=== PATIENT | female | born 1940 | race Caucasian/White ===

== ENCOUNTER 2021-06-07 12:33 | Outpatient (CLI) | payer MEDICARE, OTHER, SELFPAY ==
--- NOTE | 2021-06-07 12:39 | ECHOD_ITS ---
Reason For Study: Murmur Procedure This was a 2D Doppler, Color Flow transthoracic echocardiogram. The exam was of adequate technical quality. Exam performed in department. Left Ventricle Normal LV size. Left ventricular systolic function is normal. The estimated ejection fraction is 65 %. No regional wall motion abnormalities noted. Right Ventricle Normal RV size. Normal systolic function. Atria The left atrium is mildly enlarged. Normal right atrium. No doppler evidence for ASD. Mitral Valve There is moderate mitral annular calcification. Extension of the mitral annular calcification on the base of the posterior mitral valve leaflet. Mild-Moderate (1-2+) mitral valve insufficiency. Tricuspid Valve Normal tricuspid valve. Mild to moderate (1-2+) tricuspid valve insufficiency. Right ventricular systolic pressure estimated to be 48 mmHg. Aortic Valve Trisinus/trileaflet aortic valve. Mild focal aortic valve calcification. Mild aortic stenosis. Trivial aortic valve insufficiency. Pulmonic Valve The pulmonic valve is not well visualized. Mild (1+) pulmonic valve insufficiency. Great Vessels Normal sized aortic root. Pericardium/Pleural No pericardial effusion. MMode/2D Measurements & Calculations LVIDd: 4.5 cm IVSd: 1.2 cm LVOT diam: 2.0 cm LVIDs: 2.3 cm LVPWd: 0.89 cm LVOT area: 3.0 cm2 RVDd: 3.2 cm FS: 49.8 % Ao root diam: 2.9 cm LAV(MOD-bp): 68.7 ml LVAd ap4: 23.3 cm2 LAV(MOD-bp) Indexed: 37.3 ml/m2 LVLd ap4: 7.1 cm LAV(MOD-sp2): 66.7 ml EDV(MOD-sp4): 60.8 ml LAV(MOD-sp4): 68.0 ml EDV(sp4-el): 64.8 ml LVAs ap4: 12.0 cm2 LVLs ap4: 6.0 cm ESV(MOD-sp4): 20.1 ml ESV(sp4-el): 20.3 ml EF(MOD-sp4): 67.0 % EF(sp4-el): 68.7 % SV(MOD-sp4): 40.7 ml SV(sp4-el): 44.5 ml LA A4 area: 21.9 cm2 LA dimension(2D): 4.6 cm RA A4 area: 10.3 cm2 Doppler Measurements & Calculations MV E max todd: 129.5 cm/sec Lat Peak E' Todd: 8.3 cm/sec Med Peak E' Todd: 8.0 cm/sec MV A max todd: 118.2 cm/sec E/E' lat: 15.7 E/E' med: 16.2 MV E/A: 1.1 Ao V2 max: 218.2 cm/sec AI max todd: 422.1 cm/sec LV V1 max: 133.7 cm/sec Ao max P.1 mmHg AI max P.3 mmHg LV V1 max P.1 mmHg Ao V2 mean: 152.3 cm/sec LV V1 mean P.0 mmHg Ao mean P.3 mmHg AI dec slope: 183.2 cm/sec2 LV V1 mean: 94.6 cm/sec Ao V2 VTI: 54.2 cm AI P1/2t: 675.0 msec LV V1 VTI: 34.5 cm SAL(I,D): 1.9 cm2 SAL(V,D): 1.9 cm2 SV(LVOT): 104.6 ml PA V2 max: 117.5 cm/sec TR max todd: 330.2 cm/sec TR max P.4 mmHg ECHO/Echo Complete Interpretation Summary Left ventricular systolic function is normal. The estimated ejection fraction is 65 %. The left atrium is mildly enlarged. There is moderate mitral annular calcification. Extension of the mitral annular calcification on the base of the posterior mitr al valve leaflet. Mild-Moderate (1-2+) mitral valve insufficiency. Mild to moderate (1-2+) tricuspid valve insufficiency. Mild focal aortic valve calcification. Mild aortic stenosis. Trivial aortic valve insufficiency. Mild (1+) pulmonic valve insufficiency. Right ventricular systolic pressure estimated to be 48 mmHg. Transmitral diastolic flow velocities suggest diastolic dysfunction (pseudonorm al pattern). Ordering Physician: Olu Davis Referring Physician: MD Fermín Varun Performed By: Nichol Medina, NATALIE
== END 2021-06-07 23:59 | disposition short-term general hospital (02) ==
LOC: CVS 12:38
PROVIDERS: PCP Family Medicine; Referring Provider Internal Medicine Cardiovascular Disease; Visit Provider Internal Medicine Cardiovascular Disease
DX: I25.10 Atherosclerotic heart disease of native coronary artery without angina pectoris (principal); I10 Essential (primary) hypertension; E78.2 Mixed hyperlipidemia; R01.1 Cardiac murmur, unspecified; Z95.1 Presence of aortocoronary bypass graft
CPT/HCPCS: 93306

== ENCOUNTER → 2024-08-19 | Outpatient (CLI) | payer MEDICARE, OTHER, SELFPAY ==
--- NOTE | 2024-08-19 14:52 | NEURO ---
NCS and/or EMG Patient Report Ordering Doctor: Melba Rubio DATE OF SERVICE: 08/19/24 Sally presents for electrodiagnostic testing of the upper limbs. She reports numbness and tingling in both hands. Electrodiagnostic findings: Median motor nerve demonstrates prolonged latency bilaterally with reduced amplitudes and reduced conduction velocities. Ulnar motor response is within normal limits bilaterally. Normal median and ulnar F?waves. Prolonged median sensory latency at the wrist bilaterally. Needle EMG testing was performed upper limbs. All muscles tested showed no evidence of denervation with normal motor unit action potentials. Electrodiagnostic impression: This is an abnormal study upper limbs. 1. Electrodiagnostic findings suggestive of bilateral median mononeuropathy. This consistent with a moderate to advanced bilateral carpal tunnel syndrome. Multi Select Codes Neurology Neurology Interp Codes: 66830-73 Musc test done w/n test comp (interp) (2) and 45177-95 Nrv cndj test 9-10 studies (interp)
== END | disposition home or self-care (01) ==
LOC: PSN 13:35
PROVIDERS: PCP Family Medicine; Referring Provider Physician Assistant Surgical; Visit Provider Physician Assistant Surgical
DX: G56.03 Carpal tunnel syndrome, bilateral upper limbs (principal)
CPT/HCPCS: 95886; 95911

== ENCOUNTER → 2024-11-18 | Outpatient (CLI) | payer MEDICARE, OTHER, SELFPAY ==
[2024-11-18 13:49] LABS: Cholesterol 236 mg/dL (<=200); Low Density Lipoprotein Calc. 148 mg/dL; Triglycerides 156 mg/dL; Very Low Density Lipoprotein 31 mg/dL (5-40); cholesterol:hdl ratio screen 4.16
== END | disposition home or self-care (01) ==
LOC: LAB 11:17
PROVIDERS: PCP Family Medicine; Referring Provider Internal Medicine Cardiovascular Disease; Visit Provider Internal Medicine Cardiovascular Disease
DX: I25.10 Atherosclerotic heart disease of native coronary artery without angina pectoris (principal)
CPT/HCPCS: 36415; 80061

== ENCOUNTER 2025-03-18 09:00 | Emergency (ER) | payer MEDICARE, OTHER, SELFPAY ==
[2025-03-18 09:00] VITALS: BP 201/62; PULSE 55; RESP 16; TEMP 36.8; O2SAT 95
--- NOTE | 2025-03-18 09:18 | CT_ITS ---
PROCEDURE: CT/Brain/Head without Contrast
--- NOTE | 2025-03-18 09:18 | CT_ITS ---
PROCEDURE: CT/Spine Cervical without Contras
--- NOTE | 2025-03-18 09:20 | ED.VIS.FALL ---
HPI HPI - Fall History of Present Illness Chief Complaint: Fall Narrative Narrative: Patient is a 85-year-old female presenting to emergency department after mechanical fall. Patient brought in by daughter. Patient states that she was feeding her cats outside when she slipped on a rug coming back in causing her to fall backwards and striking the left back of her head. She denies any use of oral anticoagulation. Denies any LOC. Denies any neck or back pain. She is endorsing left-sided head pain, left hip pain and left wrist pain. States she was able to get up by herself afterwards and ambulate. [facility] Medical History Nonrheumatic aortic (valve) stenosis Non-rheumatic tricuspid valve insufficiency Non-rheumatic aortic regurgitation Cardiac murmur GERD (gastroesophageal reflux disease) Hypothyroidism Mixed hyperlipidemia Diverticulosis Old myocardial infarction Essential hypertension Atherosclerotic heart disease of [place] coronary artery without angina pectoris Home Medications ?Medication ?Instructions ?Recorded ?Last Taken ?Type coenzyme Q10 100 mg tablet 200 mg PO DAILY 01/26/19 Unknown History lorazepam 0.5 mg tablet 0.5 mg PO DAILY PRN anxiety 01/26/19 Unknown History calcium carbonate 600 mg PO DAILY 02/05/19 Unknown History lactobacillus combination no.9 4 4,000 mmu cells PO DAILY 02/05/19 Unknown History billion cell capsule (Adult 50 Plus Probiotic) losartan 100 mg tablet 100 mg PO DAILY 02/05/19 Unknown History metoprolol tartrate 25 mg tablet 25 mg PO BID 02/05/19 Unknown History vitamin B complex (B 1 tab PO DAILY 02/05/19 Unknown History Complex-Vitamin B12 tablet) amlodipine 5 mg tablet 5 mg PO DAILY 06/29/20 Unknown History vitamin E 200 unit capsule 400 unit PO BID 04/19/21 Unknown History ascorbic acid (vitamin C) 500 mg 1,000 mg PO BID PRN 07/26/22 Unknown History capsule magnesium 200 mg tablet 400 mg PO DAILY PRN 07/26/22 Unknown History levothyroxine 50 mcg tablet 88 mcg PO DAILY 07/29/23 Unknown History minerals 1 tab PO DAILY 09/30/24 Unknown History vitamin A palmitate 3,000 mcg 10,000 unit PO DAILY 09/30/24 Unknown History (10,000 unit) tablet Allergy/AdvReac Type Severity Reaction Status Date / Time atorvastatin AdvReac myalgia Verified 03/18/25 09:03 lisinopril AdvReac cough Verified 03/18/25 09:03 niacin AdvReac flushing, Verified 03/18/25 09:03 itching Family History Father CAD (coronary artery disease) Myocardial infarction Mother Heart disease CVA (cerebral vascular accident) Diabetes Brother Myocardial infarction CAD (coronary artery disease) Cancer prostate Surgical History History of carpal tunnel release History of coronary artery bypass graft x 3 (~12/29/08) Social History Smoking Status: Never smoker alcohol intake: never substance use type: does not use caffeine: No ROS ROS ED ROS Narrative see HPI EXAM Physical Exam Narrative Exam Narrative: Vital signs: Reviewed General: Alert and orientedx3. No acute distress HEENT: Head is normocephalic. There is a small cephalohematoma to the left parietal portion of the scalp. There is no overlying laceration or abrasion. Midface is stable and nontender to palpation. Pupils 2 mm equal round and reactive. Nares are patent. No septal hematoma. Oropharynx and throat exams normal. No oropharyngeal trauma. Neck: Supple without lymphadenopathy nontender. No midline cervical spinal tenderness to palpation. No step-offs or deformities. Cardiovascular: Regular rate and rhythm, no murmurs. No rubs or gallops. Normal S1 and S2 Respiratory: Clear to auscultation bilaterally. No wheezes, rales, rhonchi Chest: Left lateral chest wall is mildly tender to palpation. There is no crepitus, erythema or ecchymosis. Abdominal: Soft and nontender. Normal bowel sounds. No guarding or rebound. Nonsurgical abdomen Extremities: No midline thoracic or lumbar spinal tenderness to palpation. No step-offs or deformities. The left lateral hip is mildly tender to palpation with no evidence of trauma. There is mild tenderness to palpation of the left distal radius. No obvious deformity or evidence of trauma. Mild tenderness to palpation of the right posterior knee with no obvious deformities. Radial and DP/PT pulses are 2+ and symmetric throughout. Extremities are otherwise atraumatic and nontender to palpation with normal active range of motion. Normal sensation. Skin: No rash or redness. Neurological: Cranial nerves II through XII are grossly intact. Normal strength and sensation. Normal cerebellar function The rest of the physical exam is unremarkable Const Vital Signs: 03/18/25 09:00 03/18/25 09:16 03/18/25 09:48 Temperature 98.2 F Temperature Source Oral Pulse Rate 55 L Respiratory Rate 16 Respiratory Effort Normal Respiratory Depth Normal Respiratory Pattern Normal Blood Pressure 201/62 H 161/81 H Blood Pressure Mean 108 107 Pulse Ox 95 Oxygen Delivery Method Room Air 03/18/25 11:25 Temperature 97.9 F Temperature Source Pulse Rate 57 L Respiratory Rate 16 Respiratory Effort Respiratory Depth Respiratory Pattern Blood Pressure 139/71 H Blood Pressure Mean 93 Pulse Ox 96 Oxygen Delivery Method MDM MDM MDM Narrative Medical decision making narrative: Patient is an 85-year-old female presenting to the emergency department after a fall. Patient was seen and examined. Vitals are stable. Patient resting in bed comfortably no acute distress. This was a mechanical fall, no prodromal symptoms. Do not think patient requires labs or EKG at this time. CT the brain and cervical spine ordered given head trauma and age. X-rays ordered based on HPI and physical exam. Low concern for fractures given patient has active full range of motion of wrist and hip. Patient able to ambulate without difficulty. X-rays of the wrist, chest and hip were reviewed by myself and showed no evidence of fracture or dislocation. Radiology read in agreement. CT of the brain shows no acute abnormalities. CT cervical spine with no evidence of fracture or subluxation. Updated patient and daughter at bedside on the negative workup. Patient able to ambulate without significant difficulty. Patient discharged from the Emergency Department. I do not feel that the patient's evaluation reveals any acute reason for admission at this time. I instructed them to either follow-up with their primary care physician or promptly return to the Emergency Department for reevaluation should symptoms worsen or new symptoms develop. I explained what symptoms would indicate the need to return to the emergency department. Shared decision making was used. The patient voiced understanding of the treatment plan and is agreeable with it. Clinical impression Mechanical fall Head trauma Left wrist sprain Left hip contusion History & Record Review Discussion w/independent historian: Patient and Family Radiography X-Ray: Left Hip, Read by ED Physician, Normal and No Fracture Diagnostic Testing: Clinical Impression(s) from Imaging Studies Brain CT 03/18/25 09:18 IMPRESSION: No acute abnormality Reading Location: [id number] Cervical Spine CT 03/18/25 09:18 IMPRESSION: Multilevel disc space narrowing. No evidence of fracture or subluxation. Reading Location: [facility] Chest X-Ray 03/18/25 10:00 IMPRESSION: Prior sternotomy noted. Degenerative changes are seen of the bilateral acromioclavicular joints and bilateral glenohumeral joints. At least mild degenerative changes of the spine are seen, along with thoracic DISH. No acute osseous change is evident. If clinical concern persists, short-term follow-up imaging may be obtained to rule out a currently occult fracture. A calcified and tortuous aorta is seen. No evidence of cardiomegaly. Lungs appear clear of acute disease. No pleural effusion or pneumothorax is noted. No evidence of acute cardiopulmonary disease. Reading Location: [facility] Hip/Pelvis X-Ray 03/18/25 10:00 IMPRESSION: Prominent degenerative changes are seen of the visualized lumbar spine. Mild sacroiliac joint degenerative changes are seen. Limited imaging of the right hip shows mild degenerative changes, without apparent joint narrowing. The left hip joint demonstrates mild degenerative changes, without apparent joint narrowing. No evidence of femoral head osteonecrosis. No acute fracture or dislocation is seen. If clinical concern persists, short-term follow-up imaging may be obtained to rule out a currently occult fracture. Reading [facility] Wrist X-Ray 03/18/25 10:00 IMPRESSION: Moderate degenerative changes are seen of the 1st carpal-metacarpal joint. Mild to moderate degenerative changes are seen of the scaphoid trapezial trapezoid joint. No significant ulnar variance is noted. Satisfactory carpal alignment is seen. No acute fracture or dislocation is noted. If clinical concern persists, short-term follow-up imaging may be obtained to rule out a currently occult fracture. Reading Location: [place] [id number] Discharge Plan Triage Chief Complaint: Fall ED Provider: Bria Sandoval Dx/Rx/DC Orders Clinical Impression: Fall, Head trauma, Contusion of hip, Contusion of left wrist Instructions: ED Mechanical Fall, ED Head Injury (Adult), ED Fall Prevention Prescriptions: No Action losartan 100 mg tablet 100 mg PO DAILY calcium carbonate 600 mg calcium (1,500 mg) tablet 600 mg PO DAILY vitamin B complex [B Complex-Vitamin B12] Tablet 1 tab PO DAILY Adult 50 Plus Probiotic 4 billion cell capsule 4,000 mmu cells PO DAILY vitamin E 200 unit capsule 400 unit PO BID ascorbic acid (vitamin C) 500 mg capsule 1,000 mg PO BID PRN magnesium 200 mg tablet 400 mg PO DAILY PRN vitamin A palmitate 3,000 mcg (10,000 unit) tablet 10,000 unit PO DAILY lorazepam 0.5 mg tablet 0.5 mg PO DAILY PRN (Reason: anxiety) coenzyme Q10 100 mg tablet 200 mg PO DAILY metoprolol tartrate 25 mg tablet 25 mg PO BID levothyroxine 50 mcg tablet 88 mcg PO DAILY amlodipine 5 mg tablet 5 mg PO DAILY minerals Tablet 1 tab PO DAILY Primary Care Provider: Varun Kovacs Referrals: Varun Kovacs MD [Primary Care Provider, Family Practice] - As soon as possible Activity Restrictions/Additional Instructions: You can take Tylenol every 8 hours 1000 mg 4 pain over the next few days. You can use Voltaren gel on the areas that hurt. You can also ice them for comfort. Your evaluation in the Emergency Department did not reveal any acute reason for admission. However, I want to emphasize that you may be early in the course of a disease process or illness even if it is not present. For this reason you should follow-up within 24 hours for reevaluation with either your primary care physician or if necessary back here in the Emergency Department. You should return to the Emergency Department immediately if your symptoms worsen or new symptoms develop. Print Language: Indonesian Disposition Disposition: Home, Self Care Discharge Date/Time: 03/18/25 11:26
[2025-03-18 09:45] VITALS: BMI 34.9
[2025-03-18 09:48] VITALS: BP 161/81
--- NOTE | 2025-03-18 10:00 | RAD_ITS ---
PROCEDURE: RAD/HIP, UNI W/ Pelvis 2-3 Views
--- NOTE | 2025-03-18 10:00 | RAD_ITS ---
PROCEDURE: RAD/Wrist min 3 Views
--- NOTE | 2025-03-18 10:00 | RAD_ITS ---
PROCEDURE: RAD/Chest PA and Lateral
[2025-03-18 11:25] VITALS: BP 139/71; PULSE 57; RESP 16; TEMP 36.6; O2SAT 96
== END 2025-03-18 11:26 | disposition home or self-care (01) ==
PROVIDERS: Emergency Provider Student in an Organized Health Care Education/Training Program; PCP Family Medicine; Visit Provider Student in an Organized Health Care Education/Training Program
DX: S09.90XA Unspecified injury of head, initial encounter (principal); W01.0XXA Fall on same level from slipping, tripping and stumbling without subsequent striking against object, initial encounter; I10 Essential (primary) hypertension; S70.02XA Contusion of left hip, initial encounter; S63.92XA Sprain of unspecified part of left wrist and hand, initial encounter; I25.10 Atherosclerotic heart disease of native coronary artery without angina pectoris; S60.212A Contusion of left wrist, initial encounter; E78.2 Mixed hyperlipidemia; Y93.K9 Activity, other involving animal care; Y92.89 Other specified places as the place of occurrence of the external cause; I25.2 Old myocardial infarction; Z79.899 Other long term (current) drug therapy; E03.9 Hypothyroidism, unspecified; Z79.890 Hormone replacement therapy
CPT/HCPCS: 70450; 71046; 72125; 73110; 73502; 99282